=== PATIENT | female | born 1940 | race Caucasian/White ===

== ENCOUNTER → 2017-04-29 | Outpatient (CLI) | payer OTHER ==
[~2017-04-29] MED LIST: ACETAMINOPHEN325 M1 PO; ADULT LOW DOSE81 MG PO; AMOXICILLIN 50500 MG PO; AMOXICILLIN500 M1 PO; AUGMENTIN 875875 MG PO; AZITHROMYCIN 2250 MG PO; B-121000 MCG PO; BACTRIM DS TAB1 EACH PO; CEPHALEXIN 250250 M1 PO; CINNAMON ALPHA1 EACH PO; CIPRO500 MG PO; CIPROFLOXACIN500 M1 PO; CRANBERRY CONC1 EAC1 PO; FOSAMAX 70 MG T70 M1 PO; FOSAMAX 70 MG T70 MG PO; GLUCOPHAGE500 MG PO; HYDROCODON-ACE1 EAC7 PO; KEFLEX500 MG PO; LEVSIN0.125 MG SUBLING; LISINOPRIL5 MG PO; MULTI VITAMIN1 EACH PO; NORCO 5-325 TA1 EACH PO; PHENAZOPYRIDIN200 M2 PO; PRAVASTATIN SOD40 MG PO; PROBIOTIC1 EAC1 PO; VALTREX 500 MG500 M1 PO; VITAMIN D1000 UNI2 PO; VITAMINC500 PO; [UNRECOGNIZED DRUG - OTHER] PO
== END ==
LOC: M.RAD 15:34
DX: M85.88 Other specified disorders of bone density and structure, other site (principal); Z78.0 Asymptomatic menopausal state

== ENCOUNTER → 2017-10-25 | Outpatient (CLI) | payer OTHER | LOC: M.RAD 09:07 | DX: Z12.31 Encounter for screening mammogram for malignant neoplasm of breast (principal); E11.9 Type 2 diabetes mellitus without complications; E78.00 Pure hypercholesterolemia, unspecified ==

== ENCOUNTER 2018-07-08 07:02 | Emergency (ER) | payer OTHER ==
[~2018-07-08] VITALS: Ht 154.9 cm; Wt 79.9 kg
[2018-07-08] MEDS ORDERED: HYDROCHLOROTH12.5 M1 PO (07:11)
[2018-07-08 11:00] VITALS: BP 102/48
== END 2018-07-08 11:03 | disposition home or self-care (01) ==
LOC: M.ERS 07:02
DX: M79.605 Pain in left leg (principal); E11.9 Type 2 diabetes mellitus without complications; E78.00 Pure hypercholesterolemia, unspecified; Z87.442 Personal history of urinary calculi; Z90.710 Acquired absence of both cervix and uterus

== ENCOUNTER → 2018-10-27 | Outpatient (CLI) | payer OTHER ==
[~2018-10-27] MED LIST changes: +HYDROCHLOROTH12.5 M1 PO
== END ==
LOC: M.RAD 10:12
DX: Z12.31 Encounter for screening mammogram for malignant neoplasm of breast (principal)

== ENCOUNTER → 2019-11-05 | Outpatient (CLI) | payer OTHER | LOC: M.RAD 09-16 14:44 | PROVIDERS: ATTEND Registered Nurse Diabetes Educator | DX: Z12.31 Encounter for screening mammogram for malignant neoplasm of breast (principal); Z78.0 Asymptomatic menopausal state; M81.0 Age-related osteoporosis without current pathological fracture ==

== ENCOUNTER 2020-01-12 06:27 | Emergency (ER) | payer OTHER ==
[~2020-01-12] VITALS: Ht 154.9 cm; Wt 78.9 kg
[2020-01-12 07:00] LABS: URINE BILIRUBIN NEGATIVE (Negative); URINE BLOOD 2+ (Negative); URINE CLARITY CLEAR; URINE COLOR YELLOW; URINE GLUCOSE-RANDOM NEGATIVE (Negative); URINE KETONES TRACE (Negative); URINE PROTEIN 1+ (Negative); URINE SPECIFIC GRAVITY 1.025 (1.005-1.030); URINE UROBILINOGEN 0.2 E.U./dl (0.2-1.0)
[2020-01-12 07:06] LABS: URINE LEUKOCYTES-REFLEX 3+ (Negative); URINE NITRITE-REFLEX POSITIVE (Negative)
[2020-01-12 07:12] LABS: ABSOLUTE LYMPHOCYTES 1.1 thou/uL (0.8-5.3); ABSOLUTE MONOCYTES 0.3 thou/uL (0.0-1.2); BASOPHILS 0.3 %; EOSINOPHILS 0.2 %; HEMATOCRIT 39.7 % (37.0-47.0); HEMOGLOBIN 12.2 gm/dL (12.0-15.0); LYMPHOCYTES 11.5 %; MCH 31.5 pg (26.0-34.0); MCHC 30.7 g/dL (28.0-37.0); MCV 102.4 fL (80.0-100.0); MPV 7.6 fl. (7.2-11.1); NUCLEATED RBCS 0 /100WBC; PLATELET COUNT* 397 thou/uL (150-400); RBC 3.88 mil/uL (4.20-5.00); RDW-CV 14.4 % (10.5-14.5); WBC 9.5 thou/uL (4.0-11.0)
[2020-01-12 07:12] LABS: BACTERIA-REFLEX >30 Many /HPF (None Seen); CASTS None Seen /LPF (None Seen); CRYSTALS None Seen /LPF (None Seen); MUCUS 0-3 Light strn/LPF (None Seen); SQUAMOUS 0-3 Few /LPF (0-3); URINE RBC >20 Many /HPF (0-2); URINE WBC-REFLEX >25 Many /HPF (0-5)
[2020-01-12 07:47] LABS: CALCIUM 9.2 mg/dL (8.5-10.1); CREATININE 1.9 mg/dL (0.6-1.3); POTASSIUM 4.1 mmol/L (3.5-5.1)
[2020-01-12 07:52] LABS: ALBUMIN 3.4 g/dL (3.4-5.0); TOTAL BILIRUBIN 0.5 mg/dL (<0.1-1.0)
[2020-01-12] MEDS ORDERED: PERCOCET 5-3251 EACH PO (09:02)
[2020-01-12] MEDS ORDERED: FLOMAX0.4 MG PO (09:02)
[2020-01-12] MEDS ORDERED: CIPROFLOXACIN500 M1 PO (09:02)
[2020-01-12 09:08] VITALS: BP 131/44
== END 2020-01-12 09:09 | disposition home or self-care (01) ==
LOC: M.ERS 06:27
PROVIDERS: Personal Emergency Response Attendant
DX: N20.0 Calculus of kidney (principal); R11.2 Nausea with vomiting, unspecified; E78.00 Pure hypercholesterolemia, unspecified; E11.9 Type 2 diabetes mellitus without complications; Z90.710 Acquired absence of both cervix and uterus

== ENCOUNTER → 2020-11-08 | Outpatient (CLI) | payer OTHER ==
[~2020-11-08] MED LIST changes: +FLOMAX0.4 MG PO; +PERCOCET 5-3251 EACH PO
== END ==
LOC: M.RAD 10:00
PROVIDERS: ATTEND Registered Nurse Diabetes Educator
DX: Z12.31 Encounter for screening mammogram for malignant neoplasm of breast (principal)

== ENCOUNTER 2021-01-28 09:26 | Emergency (ER) | payer OTHER ==
[~2021-01-28] VITALS: Ht 154.9 cm; Wt 78.9 kg
[2021-01-28 09:42] LABS: URINE BILIRUBIN NEGATIVE (Negative); URINE BLOOD 3+ (Negative); URINE CLARITY CLOUDY; URINE COLOR DARK YELLOW; URINE GLUCOSE-RANDOM 1+ (Negative); URINE KETONES TRACE (Negative); URINE PROTEIN 2+ (Negative); URINE SPECIFIC GRAVITY >= 1.030 (1.005-1.030)
[2021-01-28 09:48] LABS: ABSOLUTE LYMPHOCYTES 1.6 thou/uL (0.8-5.3); HEMOGLOBIN 11.7 gm/dL (12.0-15.0); NUCLEATED RBCS 0 /100WBC
[2021-01-28 09:48] LABS: URINE LEUKOCYTES-REFLEX 2+ (Negative); URINE NITRITE-REFLEX POSITIVE (Negative)
[2021-01-28 09:49] LABS: SQUAMOUS 0-3 Few /LPF (0-3)
[2021-01-28 09:49] LABS: ABSOLUTE EOSINOPHILS 0.1 thou/uL (0.0-0.7); ABSOLUTE MONOCYTES 0.4 thou/uL (0.0-1.2); ABSOLUTE NEUTROPHILS 5.5 thou/uL (1.6-8.1); BASOPHILS 0.6 %; HEMATOCRIT 35.5 % (37.0-47.0); LYMPHOCYTES 21.1 %; MCH 30.9 pg (26.0-34.0); MCV 93.6 fL (80.0-100.0); MONOCYTES 5.1 %; MPV 7.5 fl. (7.2-11.1); PLATELET COUNT* 289 thou/uL (150-400); POLYS 72.2 %; RBC 3.79 mil/uL (4.20-5.00); RDW-CV 13.6 % (10.5-14.5); WBC 7.6 thou/uL (4.0-11.0)
[2021-01-28 09:50] LABS: BACTERIA-REFLEX >30 Many /HPF (None Seen); CASTS None Seen /LPF (None Seen); CRYSTALS None Seen /LPF (None Seen); URINE WBC-REFLEX >25 Many /HPF (0-5)
[2021-01-28 10:03] LABS: ALBUMIN 3.3 g/dL (3.4-5.0); ALKALINE PHOSPHATASE 124 U/L (46-116); ANION GAP 9 mmol/L (7-16); BUN < 1 mg/dL (7-18); CHLORIDE 92 mmol/L (98-107); CO2 26 mmol/L (21-32); GLUCOSE 359 mg/dL (70-99); POTASSIUM 3.7 mmol/L (3.5-5.1); SGOT 15 U/L (15-37); SGPT 19 U/L (30-65); SODIUM 127 mmol/L (136-145); TOTAL BILIRUBIN 0.2 mg/dL (<0.1-1.0); TOTAL PROTEIN 7.6 g/dL (6.4-8.2)
[2021-01-28 10:05] LABS: CREATININE < 0.1 mg/dL (0.6-1.3)
[2021-01-28] MEDS ORDERED: IBUPROFEN 800800 MG PO (10:28)
[2021-01-28] MEDS ORDERED: MACROBID 100 M100 M1 PO (10:28)
[2021-01-28 10:34] VITALS: BP 132/70
== END 2021-01-28 10:34 | disposition home or self-care (01) ==
LOC: M.ERS 09:26
PROVIDERS: Family Medicine
DX: M54.50 Low back pain, unspecified (principal); N39.0 Urinary tract infection, site not specified; E78.00 Pure hypercholesterolemia, unspecified; E11.9 Type 2 diabetes mellitus without complications; Z90.710 Acquired absence of both cervix and uterus; Z79.82 Long term (current) use of aspirin; Z79.899 Other long term (current) drug therapy

== ENCOUNTER 2021-02-05 12:02 | Inpatient (IN) | payer OTHER ==
[~2021-02-05] VITALS: Ht 154.9 cm; Wt 77.4 kg
[~2021-02-05 12:02] MED LIST changes: +IBUPROFEN 800800 MG PO; +MACROBID 100 M100 M1 PO
[2021-02-05 12:25] VITALS: BP 99/60
[2021-02-05 13:00] LABS: URINE BILIRUBIN NEGATIVE (Negative); URINE BLOOD 3+ (Negative); URINE CLARITY SL CLOUDY; URINE COLOR YELLOW; URINE GLUCOSE-RANDOM NEGATIVE (Negative); URINE KETONES 1+ (Negative); URINE NITRITE-REFLEX NEGATIVE (Negative); URINE PROTEIN NEGATIVE (Negative); URINE SPECIFIC GRAVITY >= 1.030 (1.005-1.030); URINE UROBILINOGEN 0.2 E.U./dl (0.2-1.0)
[2021-02-05 13:01] LABS: ABSOLUTE BASOPHILS 0.1 thou/uL (0.0-0.2); ABSOLUTE LYMPHOCYTES 1.2 thou/uL (0.8-5.3); ABSOLUTE MONOCYTES 0.4 thou/uL (0.0-1.2); ABSOLUTE NEUTROPHILS 8.5 thou/uL (1.6-8.1); BASOPHILS 0.6 %; EOSINOPHILS 0.4 %; HEMATOCRIT 37.4 % (37.0-47.0); HEMOGLOBIN 12.3 gm/dL (12.0-15.0); MCH 31.1 pg (26.0-34.0); MCHC 32.9 g/dL (28.0-37.0); MCV 94.4 fL (80.0-100.0); MPV 7.5 fl. (7.2-11.1); NUCLEATED RBCS 0 /100WBC; PLATELET COUNT* 329 thou/uL (150-400); RBC 3.96 mil/uL (4.20-5.00); RDW-CV 13.5 % (10.5-14.5); WBC 10.2 thou/uL (4.0-11.0)
[2021-02-05 13:01] LABS: URINE LEUKOCYTES-REFLEX 3+ (Negative)
[2021-02-05 13:12] LABS: CALCIUM 9.7 mg/dL (8.5-10.1); CREATININE 1.8 mg/dL (0.6-1.3); POTASSIUM 4.5 mmol/L (3.5-5.1)
[2021-02-05 13:17] LABS: ALBUMIN 3.3 g/dL (3.4-5.0); TOTAL BILIRUBIN 0.5 mg/dL (<0.1-1.0); TOTAL PROTEIN 7.8 g/dL (6.4-8.2)
[2021-02-05 13:19] LABS: BACTERIA-REFLEX None Seen /HPF (None Seen); CASTS None Seen /LPF (None Seen); CRYSTALS None Seen /LPF (None Seen); SQUAMOUS 4-10 Moderate /LPF (0-3)
--- NOTE | 2021-02-05 13:59 | EKG ---
[place] [address] ELECTROCARDIOGRAM REPORT Name: COMERAL Room: [facility]#: [id number] Admission: 02/05/21 Attend Phys: Discharge: Date of : 40 Date of Service: 02/05/21 1250 Report #: [id number] THIS REPORT FOR: //name// [facility] ED Test Date: 2021-02-05 Test Time: 12:50:14 Pat Name: AL MAN Department: Room: Gender: Lead Principal Technical Architect: : [id number] Requested By: Parris Mejia Order Number: [id number] MD: Rahul Proctor Measurements Intervals [place] Rate: 104 P: 58 IL: 120 QRS: -49 QRSD: 97 T: -6 QT: 369 QTc: 486 Interpretive Statements Sinus tachycardia Left anterior fascicular block Delayed R wave progression Nonspecific repol abnormality, inferior leads Compared to ECG 08/20/2014 05:55:25 Left anterior fascicular block now present Early repolarization now present Sinus rhythm no longer present Electronically Signed On 02-05-2021 13:58:47 [employer] by Rahul Proctor [email or web address] <ELECTRONICALLY SIGNED> By: Rahul Proctor MD, FACC 02/05/21 1358 1250 1250 Rahul Proctor MD, FACC /EPI
[2021-02-05 20:19] VITALS: BP 110/70
[2021-02-05 20:30] VITALS: BP 107/50
[2021-02-05] MEDS ORDERED: GLIPIZIDE 10 MG10 MG PO ×2 (21:43→21:44)
[2021-02-06 05:00] LABS: ABSOLUTE BASOPHILS 0.1 thou/uL (0.0-0.2); ABSOLUTE EOSINOPHILS 0.1 thou/uL (0.0-0.7); ABSOLUTE LYMPHOCYTES 1.9 thou/uL (0.8-5.3); ABSOLUTE MONOCYTES 0.4 thou/uL (0.0-1.2); EOSINOPHILS 1.8 %; HEMATOCRIT 31.1 % (37.0-47.0); HEMOGLOBIN 10.4 gm/dL (12.0-15.0); MCHC 33.4 g/dL (28.0-37.0); MCV 92.9 fL (80.0-100.0); MONOCYTES 6.2 %; MPV 7.5 fl. (7.2-11.1); NUCLEATED RBCS 0 /100WBC; PLATELET COUNT* 278 thou/uL (150-400); RBC 3.35 mil/uL (4.20-5.00); RDW-CV 13.4 % (10.5-14.5); WBC 6.4 thou/uL (4.0-11.0)
[2021-02-06 05:10] LABS: CALCIUM 8.6 mg/dL (8.5-10.1); CREATININE 1.8 mg/dL (0.6-1.3); POTASSIUM 4.1 mmol/L (3.5-5.1)
[2021-02-06 08:00] VITALS: BP 93/56
[2021-02-06 21:15] VITALS: BP 114/46
[2021-02-07 05:57] LABS: ABSOLUTE EOSINOPHILS 0.1 thou/uL (0.0-0.7); ABSOLUTE LYMPHOCYTES 1.9 thou/uL (0.8-5.3); ABSOLUTE MONOCYTES 0.4 thou/uL (0.0-1.2); ABSOLUTE NEUTROPHILS 2.3 thou/uL (1.6-8.1); BASOPHILS 0.8 %; HEMATOCRIT 30.1 % (37.0-47.0); HEMOGLOBIN 9.9 gm/dL (12.0-15.0); LYMPHOCYTES 39.3 %; MCH 31.1 pg (26.0-34.0); MCV 94.2 fL (80.0-100.0); MONOCYTES 7.6 %; MPV 7.3 fl. (7.2-11.1); NUCLEATED RBCS 0 /100WBC; PLATELET COUNT* 246 thou/uL (150-400); POLYS 49.3 %; RBC 3.19 mil/uL (4.20-5.00); RDW-CV 13.6 % (10.5-14.5); WBC 4.7 thou/uL (4.0-11.0)
[2021-02-07 06:38] LABS: ALBUMIN 2.5 g/dL (3.4-5.0); CALCIUM 8.6 mg/dL (8.5-10.1); CREATININE 1.5 mg/dL (0.6-1.3); POTASSIUM 4.2 mmol/L (3.5-5.1); TOTAL BILIRUBIN 0.2 mg/dL (<0.1-1.0); TOTAL PROTEIN 6.1 g/dL (6.4-8.2)
[2021-02-07 08:00] VITALS: BP 109/74
[2021-02-07 15:56] VITALS: BP 120/57
[2021-02-07 22:45] VITALS: BP 120/51
[2021-02-08 09:00] VITALS: BP 130/72
[2021-02-08 15:35] VITALS: BP 130/72
[2021-02-08 15:50] VITALS: BP 133/59
[2021-02-08] MEDS ORDERED: FLEXERIL PO (16:57)
[2021-02-08] MEDS ORDERED: LIDODERM1 EACH TOP (17:01)
[2021-02-08 18:13] VITALS: BP 130/72
[2021-02-08 18:18] VITALS: BP 130/72
== END 2021-02-08 18:12 | disposition home health service (06) | DRG 689 ==
LOC: M.ERS 12:02 → M.3W 15:31 → M.TBA-ER 15:31 → M.3W 20:28
PROVIDERS: Nurse Practitioner Family; ADMIT Internal Medicine; ATTEND Internal Medicine
PROC: 05HC33Z Insertion of Infusion Device into Left Basilic Vein, Percutaneous Approach (ICD-10-PCS; principal; 2021-02-07)
DX: N30.01 Acute cystitis with hematuria (principal); N17.0 Acute kidney failure with tubular necrosis; N21.0 Calculus in bladder; E78.00 Pure hypercholesterolemia, unspecified; Z20.822 Contact with and (suspected) exposure to COVID-19; E11.9 Type 2 diabetes mellitus without complications; Z87.442 Personal history of urinary calculi; Z90.710 Acquired absence of both cervix and uterus

== ENCOUNTER → 2021-03-27 | Outpatient (CLI) | payer OTHER ==
[~2021-03-27] MED LIST changes: +FLEXERIL PO; +GLIPIZIDE 10 MG10 MG PO; +LIDODERM1 EACH TOP
== END ==
LOC: M.LAB 09:28
PROVIDERS: ATTEND Anesthesiology
DX: Z01.812 Encounter for preprocedural laboratory examination (principal); Z20.822 Contact with and (suspected) exposure to COVID-19; E87.6 Hypokalemia